=== PATIENT | female | born 1955 | race Caucasian/White ===

== ENCOUNTER → 2019-09-23 | Day surgery (SDC) | payer MEDICARE ==
[2019-09-22 13:27] LABS: BASOPHILS % 0.4 % (0.0-1.0); EOSINOPHILS % 0.4 % (0.0-6.0); HEMATOCRIT 43.7 % (34.2-44.1); HEMOGLOBIN 14.2 g/dL (12.0-16.0); LYMPHOCYTES # (AUTO) 1.5 (1.0-3.2); LYMPHOCYTES % 22.8 % (18.0-39.1); MEAN CORPUSCULAR HEMOGLOBIN 30.7 pg (28-32); MEAN CORPUSCULAR HGB CONC 32.5 g/dL (31-35); MEAN CORPUSCULAR VOLUME 94.6 fL (81-99); MONOCYTES # (AUTO) 0.4 (0.2-0.8); MONOCYTES % 5.9 % (4.4-11.3); NEUTROPHILS # (AUTO) 4.7 (2.1-6.9); NEUTROPHILS % 70.2 % (38.7-80.0); PLATELET COUNT 263 x10e3/uL (140-360); RED BLOOD COUNT 4.62 x10e6/uL (3.6-5.1)
[~2019-09-23] MED LIST: AMITRIPTYLINE H25 MG PO; ATENOLOL50 MG PO; DICYCLOMINE HCL20 MG PO; FENTANYL CITRATE/PF 100MCG/2 ML INJ ONE; HYOSCYAMINE 0.125 MG TAB ONE; KETAMINE HCL INJ 50 MG/ML 10 ML VIAL ONE; MIDAZOLAM HCL 2 MG/2 ML VIAL ONE; ONDANSETRON2 MG/1 ML PO; OXYTROL1 EA TOP; PANTOPRAZOLE SO40 MG PO; PROPOFOL IV EMULSION 10 MG/ML 50 ML VIAL ONE
--- OUTSIDE RECORDS SUMMARY | 2019-09-23 09:20 | XMS REPORT | Encounter Summary ---
Author Organization Unknown Address [address] [place] [address] Phone [phone] Care Team Providers Care Healthcare Financial Analyst Name Role Phone Dr. William Adkins 3 [phone] Jarrett Wen MD 107 [phone] Jorge A Laughlin 111 [phone] David Kc MD 115 [phone] Reason for Visit dizziness; Bilateral shoulder pain Instructions 1. Dizziness CMP, serum or plasma CBC w/ auto diff electrocardiogram 2. Neck pain XR, cervical spine, 2 or 3 view physical therapy referral 3. Screening mammography MAMMO, screening, digital, bilateral - PLEASE SCHEDULE & CONTACT OUR PATIENT. THANK YOU mammogram: about this test 4. Immunization 5. Body mass index less than 20 6. Deficiency of macronutrients eating healthy foods: care instructions Discussion Note: None recorded. Plan of Care Reminders Provider Appointments None recorded. Lab CMP, Serum or Plasma 11/28/2018 [facility] Laboratory CBC W/ Auto Diff 11/28/2018 [facility] Referral Physical Therapy Referral 11/28/2018 [facility] ([place]) Procedures None recorded. Surgeries None recorded. Imaging MAMMO, Screening, Digital, Bilateral 11/28/2018 [facility] Electrocardiogram 11/28/2018 [facility] ([facility]) [place] XR, Cervical Spine, 2 or 3 View 11/28/2018 [facility] [place] Medications Name Start Date atenolol 25 mg tablet Take 1 tablet every day by oral route at bedtime for 90 days. meclizine 25 mg tablet Take 1 tablet twice a day by oral route as needed for 14 days. Medications Administered None recorded. Vitals Height Weight BMI Blood Pressure 5 ft 6 in 110 lbs 17.8 kg/m2 136/86 mm[Hg] Lab Results None recorded. 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 Gastroesophageal Reflux Disease Active 06/06/2018 Procedures Date Name Performed by 10/18/2015 Colonoscopy with Biopsy Information not available Cholecystectomy (Gall Bladder Removal) Information not available Partial Hysterectomy Information not available 11/28/2018 MAMMO, Screening, Digital, Bilateral [facility] [address] [place] [address] (Work [address]) 11/28/2018 Electrocardiogram [facility] ([facility]) [address] [address] (Work Place) 11/28/2018 XR, Cervical Spine, 2 or 3 View [facility] [place] [address] [place], [place] [phone] (Work Place) Vaccine List None recorded. Social History Smoking Status Never Smoker Past Encounters 11/28/2018 Dizziness; Neck Pain; Screening Mammography; Immunization; Body Mass Index Less than 20; Deficiency of Macronutrients William Donovan MD: [address] [place] [address], Ph. 11/21/2018 Adult Health Examination; Immunization; Mammogram Declined; Advance Directive Discussed with Patient; Depression Screening; Alcohol Consumption Screening; Body Mass Index Less than 20; Postmenopausal State; Screening for Malignant Neoplasm of Colon; Benign Paroxysmal Positional Vertigo; Benign Essential Hypertension William Donovan MD: [address] [place] [phone], Ph. History of Present Illness Note:F/u on dizziness. Spinning sensation has decreased progressively. She has taken meclizine a few times but it makes her very sleepy. Dizziness is mainly triggered by sitting up and lying down. Denies sob, palpitations or chest pain.< div>Neck pain on and off since several years ago, worse in the last 2 months, intensity: 5-10/10. Concomitantly, decreased ROM of the head, numbness and tingling in the arms.</div> Review of Systems Comprehensive General Adult ROS Reported By: Patient Constitutional: Constitutional: no fever Eyes: Eyes: no vision change ENMT: Ears: no ear pain. Nose: no sinus problems. Mouth/Throat: no sore throat Cardiovascular: Cardiovascular: no chest pain, no palpitations Respiratory: Respiratory: no cough, no wheezing, no shortness of breath Gastrointestinal: Gastrointestinal: no abdominal pain, no vomiting, no constipation, no diarrhea Musculoskeletal: Musculoskeletal: no swelling in the extremities Integumentary: Skin: no rashes Neurologic: Neurologic: no loss of consciousness, no headaches Psychiatric: Psych: no depression, no alcohol abuse, no anxiety, no suicidal thoughts Endocrine: Endocrine: no fatigue Physical Exam General Adult Exam (male) Reported By: Patient Constitutional: General Appearance: healthy-appearing. Ambulation: ambulating normally Psychiatric: Insight: good judgement. Mental Status: active and alert, normal mood, normal affect. Orientation: to time, to place, to person. Memory: recent memory normal, remote memory normal Eyes: Lids and Conjunctivae: non-injected, no discharge ENMT: Ears: TMs clear. Nose: no sinus tenderness. Lips, Teeth, and Gums: no mouth or lip ulcers. Oropharynx: moist mucous membranes Neck: Neck: trachea midline, pain with motion, tender, muscle rigidity. Lymph Nodes: no cervical LAD Lungs: Auscultation: breath sounds normal Cardiovascular: Heart Auscultation: RRR, normal S1, normal S2, no murmurs Musculoskeletal:: Motor Strength and Tone: normal, normal tone. Joints, Bones, and Muscles: normal movement of all extremities. Extremities: no edema Neurologic: Gait and Station: normal gait. Cranial Nerves: grossly intact. Sensation: grossly intact. Reflexes: DTRs 2+ bilaterally throughout
--- OUTSIDE RECORDS SUMMARY | 2019-09-23 09:20 | XMS REPORT | Encounter Summary ---
Author Organization Unknown Address [address] [place] [address] Phone [phone] Care Team Providers Care [employer] Principal Name Role Phone Dr. William Adkins 3 [phone] [facility] 2 [phone] Jarrett Wen MD 107 [phone] Jorge A Laughlin 111 [phone] David Kc MD 115 [phone] Reason for Visit Benign essential hypertension Instructions 1. Benign essential hypertension atenolol 25 mg tablet 2. Body mass index less than 20 3. Screening for malignant neoplasm of breast MAMMO, screening, digital, bilateral 4. Screening for osteoporosis bone density 5. Screening for malignant neoplasm of colon colon cancer screening, stool 6. Influenza vaccination declined Discussion Note: None recorded. Patient educational handouts: No information available. Plan of Care Reminders Provider Appointments Est Patient 07/21/2019 11:15AM William Donovan MD Lab Colon Cancer Screening, Stool 07/07/2019 [email or web address] (Cologuard Orders Only) Referral None recorded. Procedures None recorded. Surgeries None recorded. Imaging MAMMO, Screening, Digital, Bilateral 07/07/2019 [facility] Bone Density 07/07/2019 [facility] Medications Name Start Date atenolol 25 mg tablet Take 1 tablet twice a day by oral route as directed for 90 days. Oxytrol 3.9 mg/24 hr transdermal patch APPLY 1 PATCH(ES) TWICE A WEEK BY TRANSDERMAL ROUTE DIRECTED. Medications Administered None recorded. Vitals Height Weight BMI Blood Pressure 5 ft 6 in 107 lbs 17.3 kg/m2 (1) 144/91 mm[Hg] (2) 146/95 mm[Hg] Lab Results None recorded. 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 Social History Tobacco Smoking Status Never Smoker Past Encounters 07/07/2019 Benign Essential Hypertension; Body Mass Index Less than 20; Screening for Malignant Neoplasm of Breast; Screening for Osteoporosis; Screening for Malignant Neoplasm of Colon; Influenza Vaccination Declined William Donovan MD: [address] [place] [address], Ph. History of Present Illness Note:F/u on htn. Compliant with meds. Non compliant with diet or exercise. BPs at home 140s/90s. No side effects with atenolol. No new concerns. Review of Systems Comprehensive General Adult ROS Reported By: Patient Constitutional: Constitutional: no fever ENMT: Ears: no ear pain. Nose: no sinus problems. Mouth/Throat: no sore throat Cardiovascular: Cardiovascular: no chest pain, no palpitations, no lightheadedness Respiratory: Respiratory: no cough, no wheezing, no [...] Reported By: Patient Constitutional: General Appearance: healthy-appearing. Level of Distress: NAD Eyes: Lids and Conjunctivae: non-injected, no discharge. EOM: EOMI Neck: Neck: supple, trachea midline. Thyroid: no enlargement, non-tender Lungs: Auscultation: breath sounds normal Cardiovascular: Heart Auscultation: RRR, normal S1, normal S2, no murmurs. Neck vessels: no carotid bruits Abdomen: Inspection and Palpation: soft, non-distended, no tenderness, no guarding Musculoskeletal:: Motor Strength and Tone: normal, normal tone. Joints, Bones, and Muscles: normal movement of all extremities Neurologic: Gait and Station: normal gait Skin: Inspection and palpation: no rash, no lesions
--- OUTSIDE RECORDS SUMMARY | 2019-09-23 09:20 | XMS REPORT | Encounter Summary ---
Author Organization Unknown Address [address] [place] [address] Phone [phone] Care Team Providers Care Telecommunications Line Mechanic Name Role Phone Dr. William Adkins 3 [phone] [facility] 2 [phone] Jarrett Wen MD 107 [phone] Jorge A Laughlin 111 [phone] David Kc MD 115 [phone] Reason for Visit Benign essential hypertension Instructions 1. Benign essential hypertension 2. Influenza vaccination declined 3. Underweight learning about healthy weight Discussion Note: None recorded. Plan of Care Reminders Provider Appointments Return to Office on or around 08/24/2019 William Donovan MD Lab None recorded. Referral None recorded. Procedures None recorded. Surgeries None recorded. Imaging None recorded. Medications Name Start Date atenolol 25 mg tablet Take by oral route for 90 days. Oxytrol 3.9 mg/24 hr transdermal patch APPLY 1 PATCH(ES) TWICE A WEEK BY TRANSDERMAL ROUTE DIRECTED. Medications Administered None recorded. Vitals Height Weight BMI Blood Pressure 5 ft 6 in 105.8 lbs 17.1 kg/m2 (1) 130/84 mm[Hg] (2) 126/82 mm[Hg] Results Lab Results None recorded. Allergies Code Code System Name Reaction Severity Status Onset 1191 RxNorm Aspirin Active 621477 RxNorm Bactrim Diarrhea Active Itching Active Vomiting Active 900692 RxNorm Cipro Active 20350121 RxNorm Compazine Active DARVOCET-N Active 417257 RxNorm Demerol Active 5640 RxNorm Ibuprofen Active 099519 RxNorm Levaquin Active 6754 RxNorm Meperidine Active 7052 RxNorm Morphine Active Penicillins Active 8704 RxNorm Prochlorperazine Active Problems Name Status Onset Date Source Pure Hypercholesterolemia Active 07/09/2016 Benign Essential Hypertension Active 07/09/2016 Hepatic Flexure Syndrome Active 03/30/2017 Gastroesophageal Reflux Disease Active 06/06/2018 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 Social History Tobacco Smoking Status Never Smoker Past Encounters 07/21/2019 Benign Essential Hypertension; Influenza Vaccination Declined; Underweight William Donovan MD: [address] [place] [address], Ph. 07/07/2019 Benign Essential Hypertension; Body Mass Index Less than 20; Screening for Malignant Neoplasm of Breast; Screening for Osteoporosis; Screening for Malignant Neoplasm of Colon; Influenza Vaccination Declined William Donovan MD: [address] [place] [address], Ph. History of Present Illness Note:F/u on htn. Atenolol was increased to 25 mgs bid on last visit. But she felt dizzy, so she decreased the dosage to 1 tab at PM and 1/2 tablet in the AM. BPs at home 130s/80s. Feeling better. Denies side effects with meds today. Review of Systems Comprehensive General Adult ROS [...] no murmurs. Neck vessels: no carotid bruits Musculoskeletal:: Motor Strength and Tone: normal, normal tone. Joints, Bones, and Muscles: normal movement of all extremities Neurologic: Gait and Station: normal gait
--- OUTSIDE RECORDS SUMMARY | 2019-09-23 09:20 | XMS REPORT | Encounter Summary ---
Author Organization Unknown Address [address] [place] [address] Phone [phone] Care Team Providers Care Regulatory Services Consultant Name Role Phone Dr. William Adkins 3 [phone] Jarrett Wen MD 107 [phone] Jorge A Laughlin 111 [phone] David Kc MD 115 [phone] Reason for Visit lab follow-up Instructions 1. Dizziness ENT referral CT, brain, w/ contrast - PLEASE CALL PATIENT TO SCHEDULE APPT Discussion Note: None recorded. Patient educational handouts: No information available. Plan of Care Reminders Provider Appointments None recorded. Lab None recorded. Referral ENT Referral 01/12/2019 Procedures None recorded. Surgeries None recorded. Imaging CT, Brain, W/ Contrast 01/12/2019 [facility] [place] Medications Name Start Date atenolol 25 mg tablet Take 1 tablet every day by oral route at bedtime for 90 days. Medications Administered None recorded. Vitals Height Weight BMI Blood Pressure 5 ft 6 in 111 lbs 17.9 kg/m2 120/82 mm[Hg] Lab Results None recorded. Allergies Code Code System Name Reaction Severity Status Onset 1191 RxNorm Aspirin Active 687458 RxNorm Bactrim Diarrhea Active Itching Active Vomiting Active 046548 RxNorm Cipro Active 974168 RxNorm Compazine Active DARVOCET-N Active 790283 RxNorm Demerol Active 5640 RxNorm Ibuprofen Active 989235 RxNorm Levaquin Active 7052 RxNorm Morphine Active Penicillins Active Problems Name Status Onset Date Source Pure Hypercholesterolemia Active 07/09/2016 Benign Essential Hypertension Active 07/09/2016 Hepatic Flexure Syndrome Active 03/30/2017 Gastroesophageal Reflux Disease Active 06/06/2018 Procedures Date Name Performed by 10/18/2015 Colonoscopy with Biopsy Information not available Cholecystectomy (Gall Bladder Removal) Information not available Partial Hysterectomy Information not available 01/12/2019 CT, Brain, W/ Contrast [facility] [place] [address] [place] [address] (Work Place) Vaccine List None recorded. Social History Smoking Status Never Smoker Past Encounters 01/12/2019 Dizziness William Pinky Donovan MD: [address] [place] [address], Ph. History of Present Illness Note:Complaining of persistent disequilibrium and difficulty walking. Pt had a fall 2 months ago and hit the head the R side of the parieto-temporal area, but she didn't lose consciousness. Concomitantly, blurry vision. Denies headaches or neuro deficits. Review of Systems Comprehensive General Adult ROS Reported By: Patient Constitutional: Constitutional: no fever ENMT: Ears: no ear pain. Nose: no sinus problems. Mouth/Throat: no sore throat Cardiovascular: Cardiovascular: no chest pain, palpitations Respiratory: Respiratory: no cough, no wheezing, no shortness of breath Gastrointestinal: Gastrointestinal: no abdominal pain, no vomiting, no constipation, no diarrhea Musculoskeletal: Musculoskeletal: no swelling in the extremities Integumentary: Skin: no rashes Neurologic: Neurologic: no loss of consciousness, no headaches Psychiatric: Psych: no depression, no alcohol abuse, no suicidal thoughts, anxiety Endocrine: Endocrine: no fatigue Physical Exam General Adult Exam (male) Reported By: Patient Constitutional: General Appearance: healthy-appearing. Level of Distress: NAD Psychiatric: Insight: good judgement. Mental Status: active and alert, normal mood, normal affect. Orientation: to time, to place, to person. Memory: recent memory normal, remote memory normal Eyes: Lids and Conjunctivae: non-injected, no discharge. Pupils: PERRLA. EOM: nystagmus ENMT: Ears: TMs clear. Nose: no sinus tenderness. Lips, Teeth, and Gums: no mouth or lip ulcers. Oropharynx: moist mucous membranes Neck: Neck: supple, trachea midline. Thyroid: no enlargement, non-tender Lungs: Auscultation: breath sounds normal Cardiovascular: Heart Auscultation: RRR, normal S1, normal S2, no murmurs Neurologic: Gait and Station: ; unsteady gait. Cranial Nerves: grossly intact. Coordination and Cerebellum: intention tremor Skin: Inspection and palpation: no rash, no lesions
--- OUTSIDE RECORDS SUMMARY | 2019-09-23 09:20 | XMS REPORT | Encounter Summary ---
Author Organization Unknown Address [address] [place] [address] Phone [phone] Care Team Providers Care Tassel Making Machine Operator Name Role Phone Dr. William Adkins 3 [phone] Jarrett Wen MD 107 [phone] Jorge A Laughlin 111 [phone] David Kc MD 115 [phone] Reason for Visit Quality BMI DEPRESSION FALL; Right ear pain/problem; AWV Annual Wellness Visit Female ([facility]); dizziness; Bilateral neck pain Instructions 1. Adult health examination 2. Immunization 3. Mammogram declined 4. Advance directive discussed with patient advance care planning: care instructions 5. Depression screening learning about depression 6. Alcohol consumption screening learning about alcohol misuse 7. Body mass index less than 20 learning about healthy weight 8. Postmenopausal state learning about healthy weight bone density referral 9. Screening for malignant neoplasm of colon 10. Benign paroxysmal positional vertigo meclizine 25 mg tablet 11. Benign essential hypertension atenolol 25 mg tablet Discussion Note: None recorded. Plan of Care Reminders Provider Appointments Est Patient 11/28/2018 3:45PM William Donovan MD Lab None recorded. Referral Bone Density Referral 11/21/2018 Procedures None recorded. Surgeries None recorded. Imaging None recorded. Medications Name Start Date atenolol 25 mg tablet Take 1 tablet every day by oral route at bedtime for 90 days. meclizine 25 mg tablet Take 1 tablet twice a day by oral route as needed for 14 days. Medications Administered None recorded. Vitals Height Weight BMI Blood Pressure 5 ft 6 in 108.6 lbs 17.5 kg/m2 (1) 150/94 mm[Hg] (2) 132/90 mm[Hg] Lab Results None recorded. Allergies Code Code System Name Reaction Severity Status Onset 1191 RxNorm Aspirin Active 732650 RxNorm Bactrim Diarrhea Active Itching Active Vomiting Active 609098 RxNorm Cipro Active 20350121 RxNorm Compazine Active DARVOCET-N Active 722885 RxNorm Demerol Active 5640 RxNorm Ibuprofen Active 334344 RxNorm Levaquin Active 7052 RxNorm Morphine Active Penicillins Active Problems Name Status Onset Date Source Pure Hypercholesterolemia Active 07/09/2016 Benign Essential Hypertension Active 07/09/2016 Hepatic Flexure Syndrome Active 03/30/2017 Gastroesophageal Reflux Disease Active 06/06/2018 Procedures Date Name Performed by 10/18/2015 Colonoscopy with Biopsy Information not available Cholecystectomy (Gall Bladder Removal) Information not available Partial Hysterectomy Information not available Vaccine List None recorded. Social History Smoking Status Never Smoker Past Encounters 11/21/2018 Adult Health Examination; Immunization; Mammogram Declined; Advance Directive Discussed with Patient; Depression Screening; Alcohol Consumption Screening; Body Mass Index Less than 20; Postmenopausal State; Screening for Malignant Neoplasm of Colon; Benign Paroxysmal Positional Vertigo; Benign Essential Hypertension William Donovan MD: [address] [place] [phone], Ph. History of Present Illness Mini Cog Reported By: Patient Functional Ability: Personal/Social/ Draw a clock and write in the numbers in the correct place, and set the time to 10 minutes after 11 o'clock was completed correctly? No, 3 word recall: Your nurse or doctor will ask you to remember 3 words. In 5 minutes, they will ask you to repeat them. Patient recalled 3 words Note:Neck pain, dizziness (spinning sensation) and tingling in the left arm since 10 days ago. Concomitantly , mild nausea. Review of Systems Comprehensive General Adult ROS Reported By: Patient Constitutional: Constitutional: no fever Eyes: Eyes: no vision change ENMT: Ears: no ear pain. Nose: no sinus problems. Mouth/Throat: no sore throat Cardiovascular: Cardiovascular: no chest pain, no palpitations Respiratory: Respiratory: no cough, no wheezing, no shortness of breath Gastrointestinal: Gastrointestinal: no abdominal pain, no vomiting, no constipation, no diarrhea Musculoskeletal: Musculoskeletal: no muscle aches, no swelling in the extremities Integumentary: Skin: [...] and Conjunctivae: non-injected, no discharge. EOM: EOMI ENMT: Ears: TMs clear. Nose: no sinus tenderness. Lips, Teeth, and Gums: no mouth or lip ulcers. Oropharynx: moist mucous membranes Neck: Neck: supple, trachea midline. Thyroid: no enlargement, non-tender Lungs: Auscultation: breath sounds normal Cardiovascular: Heart Auscultation: RRR, normal S1, normal S2, no murmurs. Neck vessels: no carotid bruits. Pulses including femoral / pedal: normal throughout Abdomen: Inspection and Palpation: soft, non-distended, no tenderness, no guarding Musculoskeletal:: Motor Strength and Tone: normal, normal tone. Joints, Bones, and Muscles: normal movement of all extremities. Extremities: no edema Neurologic: Gait and Station: normal gait. Cranial Nerves: grossly intact. Sensation: grossly intact. Reflexes: DTRs 2+ bilaterally throughout Skin: Inspection and palpation: no rash, no lesions Notes: [place] Hallpike maneuver positive bilaterally.
--- OUTSIDE RECORDS SUMMARY | 2019-09-23 09:20 | XMS REPORT | Encounter Summary ---
Author Organization Unknown Address [address] [place] [address] Phone [phone] Care Team Providers Care Occupational Medicine Officer Name Role Phone Dr. William Adkins 3 [phone] [facility] [place] 2 [phone] Jarrett Wen MD 107 [phone] Jorge A Laughlin 111 [phone] David Kc MD 115 [phone] Reason for Visit UTI Instructions 1. Acute urinary tract infection urinalysis, dipstick Macrobid 100 mg capsule culture, urine 2. Immunization refused 3. Urge incontinence of urine Oxytrol 3.9 mg/24 hr transdermal patch Discussion Note: None recorded. Patient educational handouts: No information available. Plan of Care Reminders Provider Appointments None recorded. Lab Urinalysis, Dipstick 01/31/2019 [facility] ([facility] Culture, Urine 01/31/2019 [facility] Laboratory Referral None recorded. Procedures None recorded. Surgeries None recorded. Imaging None recorded. Medications Name Start Date atenolol 25 mg tablet Take 1 tablet every day by oral route at bedtime for 90 days. Macrobid 100 mg capsule Take 1 capsule every 12 hours by oral route as directed for 7 days. Oxytrol 3.9 mg/24 hr transdermal patch Apply 1 patch twice a week by transdermal route as directed. Medications Administered None recorded. Vitals Height Weight BMI Blood Pressure 5 ft 6 in 111 lbs 17.9 kg/m2 122/70 mm[Hg] Lab Results Date Name Specimen Result Interpretation Description Value Range Status Address Urinalysis, Dipstick Color Glucose negative [facility] ([facility]) Hernandez: [address] [facility], [place] Color Bilirubin negative [facility] ([facility]) Hernandez: [address] [facility], [place] Color Ketones small [facility] ([facility]) Hernandez: [address] [place] Color Specific [place] 1.020 [facility] Hernandez: [address] [place] Color Blood small [facility] ([facility]) Hernandez: [address] [place] Color PH 5.5 [facility] ([facility]) Hernandez: [address] [place] Color Protein negative [facility] ([facility]) Hernandez: [address] [place] Color Urobilinogen 0.2 [facility] (p) Hernandez: [address] [place] Color Nitrites negative [facility] Hernandez: [address] [place] Color Leukocytes negative [facility] ([facility]) Hernandez: [address] [place] Allergies Code Code System Name Reaction Severity Status Onset 1191 RxNorm Aspirin Active 007001 RxNorm Bactrim Diarrhea Active Itching Active Vomiting Active 189604 RxNorm Cipro Active 578923 RxNorm Compazine Active DARVOCET-N Active 673678 RxNorm Demerol Active 5640 RxNorm Ibuprofen Active 475678 RxNorm Levaquin Active 7052 RxNorm Morphine Active Penicillins Active Problems Name Status Onset Date Source Pure Hypercholesterolemia Active 07/09/2016 Benign Essential Hypertension Active 07/09/2016 Hepatic Flexure Syndrome Active 03/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 Gastroesophageal Reflux Disease Active 06/06/2018 Chronic Interstitial Cystitis Active Procedures Date Name Performed by 10/18/2015 Colonoscopy with Biopsy Information not available Cholecystectomy (Gall Bladder Removal) Information not available Partial Hysterectomy Information not available 01/12/2019 CT, Brain, W/ Contrast [facility] [place] [address] [place] [address] (Work [address]) 01/17/2019 CT, Brain, W/wo Contrast [facility] [place] [address] [place] [address] (Work [address]) Vaccine List None recorded. Social History Smoking Status Never Smoker Past Encounters 01/31/2019 Acute Urinary Tract Infection; Immunization Refused; Urge Incontinence of Urine William Pinky Alejandreano, MD: [address] [place] [address], Ph. 01/12/2019 Dizziness William Donovan MD: [address] [place] [address], Ph. History of Present Illness Note:Dysuria, urinary frequency and urgency since 2 days ago. Denies hematuria, fever or back pain. Review of Systems:ROS as noted in the HPI Review of Systems None recorded. Physical Exam General Adult Exam (male) Reported By: Patient Constitutional: General Appearance: healthy-appearing. Level of Distress: NAD Psychiatric: Insight: good judgement. Mental Status: active and alert, normal mood, normal affect. Orientation: to time, to place, to person. Memory: recent memory normal, remote memory normal Eyes: Lids and Conjunctivae: non-injected, no discharge Neck: Neck: supple, trachea midline Lungs: Auscultation: breath sounds normal Cardiovascular: Heart Auscultation: RRR, normal S1, normal S2, no murmurs Abdomen: Inspection and Palpation: soft, non-distended, no tenderness, no guarding, no rebound tenderness, no masses, no CVA tenderness Neurologic: Gait and Station: normal gait
--- OUTSIDE RECORDS SUMMARY | 2019-09-23 09:20 | XMS REPORT | Encounter Summary ---
Author Organization Unknown Address [address] [place] [address] Phone [phone] Care Team Providers Care Cloth Stretcher Name Role Phone Dr. William Adkins 3 [phone] [facility] 2 [phone] Jarrett Wen MD 107 [phone] Jorge A Laughlin 111 [phone] David Kc MD 115 [phone] Reason for Visit other - see typed reason Instructions 1. Body mass index less than 20 2. Chronic interstitial cystitis amitriptyline 25 mg tablet 3. Microscopic hematuria urinalysis, dipstick urinalysis, complete culture, urine 4. Vaginal dryness Replens vaginal gel Discussion Note: None recorded. Patient educational handouts: No information available. Plan of Care Reminders Provider Appointments None recorded. Lab Urinalysis, Dipstick 09/06/2019 [facility] Urinalysis, Complete 09/06/2019 [facility] Laboratory Culture, Urine 09/06/2019 [facility] Laboratory Referral None recorded. Procedures None recorded. Surgeries None recorded. Imaging None recorded. Medications Name Start Date alendronate 70 mg tablet Take 1 tablet every week by oral route as directed for 90 days. amitriptyline 25 mg tablet Take 1 tablet every day by oral route. atenolol 25 mg tablet Take by oral route for 90 days. Oxytrol 3.9 mg/24 hr transdermal patch APPLY 1 PATCH(ES) TWICE A WEEK BY TRANSDERMAL ROUTE DIRECTED. Replens vaginal gel Insert 1 g every day by vaginal route. Medications Administered None recorded. Vitals Height Weight BMI Blood Pressure 5 ft 6 in 105 lbs 16.9 kg/m2 132/89 mm[Hg] Results Lab Results Date Name Specimen Result Interpretation Description Value Range Status Address 09/06/2019 Urinalysis, Dipstick Color Color yellow [facility]: [address] [place] Color Appearance cloudy [facility]: [address] [facility] [place] Color Glucose negative [facility] [address] [facility] [place] Color Bilirubin negative [facility] [address] [facility] [place] Color Ketones negative [facility] [address] [facility] [place] Color Specific [place] 1.020 [facility]: [address] [facility] [place] Color Blood moderate [facility]: [address] [facility] [place] Color PH 5.5 [facility]: [address] [facility] [place] Color Protein trace [facility]: [address] [facility] [place] Color Urobilinogen 0.2 [facility]: [address] [facility] [place] Color Nitrites negative [facility]: [address] [facility], [place] Color Leukocytes small [facility]: [address] [facility] [place] Allergies Code Code System Name Reaction Severity Status Onset 1191 RxNorm Aspirin Active 623317 RxNorm Bactrim Diarrhea Active Itching Active Vomiting Active 681804 RxNorm Cipro Active 124394 RxNorm Compazine Active DARVOCET-N Active 454770 RxNorm Demerol Active 5640 RxNorm Ibuprofen Active 901697 RxNorm Levaquin Active 6754 RxNorm Meperidine Active 7052 RxNorm Morphine Active Penicillins Active 8704 RxNorm Prochlorperazine Active Problems Name Status Onset Date Source Pure Hypercholesterolemia Active 07/09/2016 Benign Essential Hypertension Active 07/09/2016 Hepatic Flexure Syndrome Active 03/30/2017 Gastroesophageal Reflux Disease Active 06/06/2018 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 Social History Tobacco Smoking Status Never Smoker Past Encounters 09/06/2019 Body Mass Index Less than 20; Chronic Interstitial Cystitis; Microscopic Hematuria; Vaginal Dryness Haresh Muñoz, DO: [address] [place] [address], Ph. History of Present Illness Note:1) URINARY PAIN <div>- present since Aug 2. Has h/o Bladder Pain Syndrome / IC. Endorses pain with urination, urinary frequency, urinary hesitancy. Has seen urologist in the past. Uses Oxytrol patch. Reported has small, underdeveloped bladder. Pain rated 10/10. Pain described "peeing glass". </div> Review of Systems Brief APPLICATIONS SUPPORT LEAD ROS Reported By: Patient Constitutional: Constitutional: no fever Cardiovascular: Cardiovascular: no chest pain, no palpitations, no SOB, no orthopnea, no edema Gastrointestinal: Gastrointestinal: no nausea, no vomiting, no abdominal pain, no bowel movement changes Genitourinary: Genitourinary: hematuria, difficulty urinating, urinary frequency, urinary urgency, dysuria Endocrine: Menopausal: dry vaginal mucosa Physical Exam General Adult Exam (Female) Reported By: Patient Constitutional: General Appearance: healthy-appearing, well-nourished, well-developed. Level of Distress: NAD. Ambulation: ambulating normally Lungs: Respiratory effort: no dyspnea. Percussion: no dullness, flatness, or hyperresonance. Auscultation: CTA except as noted Cardiovascular: Heart Auscultation: RRR, no murmurs, no rubs, no gallops Abdomen: Bowel Sounds: normal. Inspection and Palpation: soft, non-distended, no tenderness, no guarding, no masses Musculoskeletal:: Motor Strength and Tone: normal motor strength. Joints, Bones, and Muscles: normal movement of all extremities. Extremities: no edema
--- OUTSIDE RECORDS SUMMARY | 2019-09-23 09:20 | XMS REPORT ---
Author Author [facility] Address Unknown Phone Unavailable Care Team Providers Care Mapping Supervisor Name Role Phone Unavailable Unavailable Problems This patient has no known problems. Allergies, Adverse Reactions, Alerts This patient has no known allergies or adverse reactions. Medications This patient has no known medications. Results Test Description Test Time Test Comments Text Results Atomic Results Result Comments SCR MAMM BILATERAL CARROL CAD DIGITAL 2019-08-28 09:22:59 - SCR MAMM BILATERAL CARROL CAD DIGITALBILATERAL DIGITAL SCREENING MAMMOGRAM 3D/2D WITH CAD: 08/04/2019CLINICAL: Asymptomatic. Digital breast tomosynthesis was performed in addition to routine CC and MLO views. Current mammographic images were evaluated by either a [employer] M-Vu or a [employer] ImageChecker CAD (computer aided detection system). Comparison is made to exams dated 06/20/2013 mammogram and mammogram - [facility]. The tissue of both breasts is heterogeneously dense. Postsurgical changes, in the left breast, are stable since comparison mammograms. Multiple bilateral oval, circumscribed, low- density benign-appearing masses.No suspicious mass, architectural distortion, malignant type calcification, or lymph node abnormality detected. IMPRESSION: INCOMPLETE: ADDITIONAL IMAGING EVALUATION NEEDEDMultiple bilateral oval, circumscribed, low-density benign-appearing masses. Bilateral survey ultrasound is recommended at this time.Justin Funes M.D. ss/:08/28/2019 09:22:59 copy to: [facility], ph: [phone], fax: [phone] Technologist: Liam Zelaya [facility]-FWletter sent: Additional Imaging Mammogram BI-RADS: 0 Incomplete: Additional Imaging Evaluation Needed
--- OUTSIDE RECORDS SUMMARY | 2019-09-23 09:21 | XMS REPORT | Encounter Summary ---
Author Organization Unknown Address [address] [place] [address] Phone [phone] Care Team Providers Care Operation Manager Name Role Phone Dr. William Adkins 3 [phone] [facility] [place] 2 [phone] Jarrett Wen MD 107 [phone] Jorge A Laughlin 111 [phone] David Kc MD 115 [phone] Reason for Visit UTI Instructions 1. Chronic interstitial cystitis urology referral urinalysis, dipstick 2. Benign essential hypertension 3. Body mass index less than 20 Discussion Note: None recorded. Patient educational handouts: No information available. Plan of Care Reminders Provider Appointments Return to Office on or around 10/13/2019 Chayo Turcios NP Lab Urinalysis, Dipstick 09/13/2019 [facility] Ref[facility] Urology Referral 09/13/2019 David Kc MD Procedures None recorded. Surgeries None recorded. Imaging None recorded. Medications Name Start Date alendronate 70 mg tablet Take 1 tablet every week by oral route as directed for 90 days. amitriptyline 25 mg tablet Take 1 tablet every day by oral route. atenolol 25 mg tablet Take by oral route for 90 days. Augmentin 875 mg-125 mg tablet Take 1 tablet every 12 hours by oral route for 10 days. Macrobid 100 mg capsule Take 1 capsule every 12 hours by oral route as directed for 7 days. Oxytrol 3.9 mg/24 hr transdermal patch APPLY 1 PATCH(ES) TWICE A WEEK BY TRANSDERMAL ROUTE DIRECTED. phenazopyridine 100 mg tablet Take 1 tablet 3 times a day by oral route for 10 days. Replens vaginal gel Insert 1 g every day by vaginal route. Medications Administered None recorded. Vitals Height Weight BMI Blood Pressure 5 ft 6 in 106 lbs 17.1 kg/m2 (1) 152/100 mm[Hg] (2) 150/98 mm[Hg] (3) 140/90 mm[Hg] Results Lab Results Date Name Specimen Result Interpretation Description Value Range Status Address 09/06/2019 Culture, Urine ABNORMAL Culture, Urine, Routine see note Final [facility] Laboratory: [address], [place] 09/06/2019 Urinalysis, Complete Normal Color yellow yellow Final [facility] Laboratory: [address] [facility], [place] ABNORMAL Appearance cloudy clear Final [facility] Laboratory: [address] [place] [address], [place] Normal Specific [place] 1.016 1.001-1.035 Final [facility] Laboratory: [address] Normal Ph < or=5.0 5.0-8.0 Final [facility] Laboratory: [address] [place] [address], [place] Normal Glucose negative negative Final [facility] Laboratory: [address] [facility], [place] Normal Bilirubin negative negative Final [facility] Laboratory: [address] Normal Ketones negative negative Final [facility] Laboratory: [address] ABNORMAL Occult Blood 2+ negative Final [facility] Laboratory: [address] [facility], [place] Normal Protein negative negative Final [facility] Laboratory: [address] [place] [address] Normal Nitrite negative negative Final [facility] Laboratory: [address] ABNORMAL Leukocyte Esterase 3+ negative [facility] Laboratory: [address] ABNORMAL Wbc > or=60 /hpf < or=5 /hpf Final [facility] Laboratory: [address] ABNORMAL Rbc 3-10 /hpf < or=2 /hpf Final [facility] Laboratory: [address] Squamous Epithelial Cells 0-5 /hpf < or=5 /hpf Final [facility] Laboratory: [address] ABNORMAL Bacteria few /hpf none seen /hpf Final [facility] Laboratory: [address] ABNORMAL Calcium Oxalate Crystals moderate /hpf none or few /hpf Final [facility] Laboratory: [address] Normal Hyaline Cast none seen /lpf none seen /lpf Final [facility] Laboratory: [address] [facility] 09/06/2019 Urinalysis, Dipstick Color Color yellow [facility]: [address] [place] [address]., [place] Color Appearance cloudy [facility]: [address] [place] [address]., [place] Color Glucose negative [facility]: [address] [place] [address]., [place] Color Bilirubin negative [facility]: [address] [place] [address]., [place] Color Ketones negative [facility]: [address] [place] [address]., [place] Color Specific [place] 1.020 [facility]: [address] [place] [address]., [place] Color Blood moderate [facility]: [address] [place] [address]., [place] Color PH 5.5 [facility]: [address] [place] [address]., [place] Color Protein trace [facility]: [address] [place] [address]., [place] Color Urobilinogen 0.2 [facility]: [address] [place] [address]., [place] Color Nitrites negative [facility]: [address] [place] [address]., [place] Color Leukocytes small [facility]: [address] [place] [address]., [place] Urinalysis, Dipstick Color Color yellow [facility]: [address] [place] [address]., [place] Color Appearance clear [facility]: [address] [place] [address]., [place] Color Glucose negative [facility]: [address] [place] [address]., [place] Color Bilirubin negative [facility]: [address] [place] [address]., [place] Color Ketones negative [facility]: [address] [place] [address]., [place] Color Specific [place] 1.030 [facility]: [address] [place] [address]., [place] Color Blood small [facility]: [address] [place] [address]., [place] Color PH 6.0 [facility]: [address] [place] [address]., [place] Color Protein negative [facility]: [address] [place] [address]., [place] Color Urobilinogen 0.2 [facility]: [address] [facility] Color Nitrites negative [facility] [address] [facility] Color Leukocytes trace [facility] [address] [facility] Allergies Code Code System Name Reaction Severity Status Onset 1191 RxNorm Aspirin Active 739954 RxNorm Bactrim Diarrhea Active Itching Active Vomiting Active 792886 RxNorm Cipro Active 812897 RxNorm Compazine Active DARVOCET-N Active 074463 RxNorm Demerol Active 5640 RxNorm Ibuprofen Active 367803 RxNorm Levaquin Active 6754 RxNorm Meperidine Active [...] not available Partial Hysterectomy Information not available 09/07/2019 US, Breast, Bilateral [facility] [address] [facility] [address] [place] [address] (Work Place) Vaccine List None recorded. Social History Tobacco Smoking Status Never Smoker Past Encounters 09/13/2019 Chronic Interstitial Cystitis; Benign Essential Hypertension; Body Mass Index Less than 20 Chayo Turcios [employer]: [address] [place] [address], Ph. 09/06/2019 Body Mass Index Less than 20; Chronic Interstitial Cystitis; Microscopic Hematuria; Vaginal Dryness Haresh Muñoz, DO: [address] [place] [address], Ph. History of Present Illness Note:<div>Follow up visit from 09/15/19 for chronic interstitial cystitis: Has on and off abdominal pain radiating to the back after urinating started 3 days ago after starting macrobid for uti. </div><div>Started with amitriptyline after the last visit which helped with sx. Stopped taking it on starting macrobid with onset of sx</div><div>
</div><div>Hx of Hepatic flexure syndrome and interstitial cystitis. </div><div>
</div><div>Plans to see Dr. Farias ( gastro) on Sep 23 and plans to have colonoscopy.</div><div>
</div> <div>Has h/o Bladder Pain Syndrome and has urinary frequency and hesitancy. Has seen urologist Dr. Kc March 2017. Uses Oxytrol patch. </div><div>
</div>< div>has yet to try Replens for vaginal dryness. </div><div>
</div><div>
< /div> Review of Systems Comprehensive Adult Problem ROS Reported By: Patient Constitutional: Constitutional: no significant weight change, no fatigue Cardiovascular: Cardiovascular: no chest pain, normal heart rate; no pedal edema Respiratory: Respiratory: no cough, no wheezing, no chest tightness, normal respiration Gastrointestinal: GI: no vomiting, no diarrhea, no constipation, abdominal pain Genitourinary: : no blood in urine, no pain with urination, increased frequency of urination Musculoskeletal: Musculoskeletal: no soft tissue swelling, no joint swelling Skin: Skin: no rash Neurological symptoms: Neuro: no numbness, no tingling, no headache, no dizziness Psychiatric: Psych: no depression, no anxiety Physical Exam General Adult Exam (Female) Reported By: Patient Constitutional: General Appearance: healthy-appearing, well-developed, too thin. Level of Distress: NAD. Ambulation: ambulating normally Psychiatric: Mental Status: active and alert, normal mood, normal affect. Orientation: to time, to place, to person Lungs: Respiratory effort: no dyspnea. Auscultation: breath sounds normal, good air movement, no wheezing, no rales/crackles, no rhonchi Cardiovascular: Apical Impulse: not displaced. Heart Auscultation: RRR, normal S1, normal S2, no murmurs Abdomen: Bowel Sounds: normal. Inspection and Palpation: soft, non-distended, no tenderness, no guarding, no rebound tenderness, no masses, no CVA tenderness. Liver: non-tender, no hepatomegaly. Spleen: non-tender, no splenomegaly Musculoskeletal:: Joints, Bones, and Muscles: normal movement of all extremities. Extremities: no edema Neurologic: Gait and Station: normal gait, normal station Skin: Inspection and palpation: no rash
--- NOTE | 2019-09-24 01:35 | Operative Report ---
DATE OF PROCEDURE: 09/23/2019 SURGEON: Jarrett Wen MD PROCEDURE: Colonoscopy. REFERRING PHYSICIAN: William Donovan MD INDICATIONS FOR COLONOSCOPY: Surveillance colonoscopy, personal history of colon polyps, positive Cologuard test. MEDICATIONS: The patient was done under MAC, please see anesthesiologist's note. PROCEDURE IN DETAIL: With the patient in left lateral decubitus position flexible fiberoptic Olympus colonoscope was inserted into the rectum with ease and advanced all the way to the cecum. The colon was somewhat tortuous and irritable, but visualization was fair. The scope was then withdrawn slowly whatever was visualized the mucosa overlying the cecum, ascending colon, transverse colon, descending colon grossly appeared to be within normal limits. Some diverticular disease was noted in the sigmoid colon. The rectum overall appeared to be within normal limits. The rectum was small and could not retroflex the scope. The scope was subsequently withdrawn. The patient tolerated procedure well. IMPRESSION: 1. Colon tortuous and, irritable but visualization was fair. 2. Diverticulosis. 3. Rectum small could not retroflex the scope. PLAN: Initiate high-fiber, low-fat diet. Initiate high-fiber supplement. Might consider a followup colonoscopy in 1 to 2 years considering her positive Cologuard test versus an air-contrast barium enema. Jarrett Wen MD [facility] – [place] /[id number] cc: MD Jarrett Silvestre MD
== END | disposition home or self-care (01) ==
LOC: OR 09:16
PROVIDERS: ATTEND Internal Medicine Gastroenterology
DX: Z09 Encounter for follow-up examination after completed treatment for conditions other than malignant neoplasm (principal); Z86.010 Personal history of colon polyps; K62.89 Other specified diseases of anus and rectum; K57.30 Diverticulosis of large intestine without perforation or abscess without bleeding; K58.9 Irritable bowel syndrome, unspecified; Z01.810 Encounter for preprocedural cardiovascular examination; Z01.812 Encounter for preprocedural laboratory examination; I10 Essential (primary) hypertension; E78.5 Hyperlipidemia, unspecified; K21.9 Gastro-esophageal reflux disease without esophagitis; K44.9 Diaphragmatic hernia without obstruction or gangrene
CPT/HCPCS: 36415; 45378; 85025; 93005; J2250; J2704; J3010